=== PATIENT | male | born 2000 | race Caucasian/White ===

== ENCOUNTER 2023-03-12 15:50 | Inpatient (IN) | payer OTHER, SELFPAY ==
[~2023-03-12 15:50] MED LIST: Iopamidol 370 76% 100 ML VIAL ONE
[2023-03-12 17:22] LABS: #Eosinphils 0.1 10x3/uL (0.0-0.5); #Monocytes 0.9 10x3/uL (0.0-1.1); #Neutrophils 6.5 10x3/uL (1.5-8.4); %Basophils 0.1 % (0.0-2.0); %Eosinophils 1.6 % (0.0-6.0); %Lymphocytes 8.4 % (18.0-47.0); %Monocytes 11.3 % (0.0-10.0); %Neutrophils 78.4 % (40.0-75.0); Hematocrit 37.7 % (38.8-50.0); Hemoglobin 13.3 g/dL (13.5-17.5); Mean Corpuscular HGB CONC 35.3 g/dL (32.0-36.0); Mean Corpuscular Volume 84.9 fl (81.2-95.1); Mean Platelet Volume 10.2 fl (7.4-10.4); Platelet Count 187 10x3/uL (150-450); RBC Distribution Width 12.3 % (11.5-14.5); Red Blood Cell (RBC) Count 4.44 10x6/uL (4.32-5.72); White Blood Cell (WBC) Count 8.3 10x3/uL (3.5-10.5)
[2023-03-12 17:33] LABS: ALT (SGPT) 15 U/L (8-55); AST (SGOT) 26 U/L (5-34); Albumin 4.2 g/dL (3.5-5.0); Alkaline Phosphatase 53 U/L (40-110); Anion Gap 16 mmol/L (10-20); BUN (Urea Nitrogen) 11 mg/dL (8.9-20.6); Calc. Creatinine Clearance 0 mL/min (70-130); Calcium 8.8 mg/dL (7.8-10.44); Carbon Dioxide 22 mmol/L (22-29); Chloride 104 mmol/L (98-107); Estimated GFR 127; Globulin 2.5 g/dL (2.4-3.5); Glucose 109 mg/dL (70-105); Magnesium 1.8 mg/dL (1.6-2.6); Protein, Total 6.7 g/dL (6.0-8.3); Sodium 138 mmol/L (136-145)
[2023-03-12 17:38] LABS: Troponin I Less than 0.010 ng/mL (< 0.028)
[2023-03-12] MEDS ORDERED: Ondansetron PF 4 MG/2 ML Vial ONE (18:08)
[2023-03-12] MEDS ORDERED: cefTRIAXone (ROCEPHIN) 1 GM VIAL ONE (18:08)
[2023-03-12] MEDS ORDERED: Azithromycin 500 MG VIAL ONE (18:09)
[2023-03-12] MEDS ORDERED: HYDROcodone/Acetaminophen 5/325 mg Tablet PO PRN (18:10)
[2023-03-12] MEDS ORDERED: Senokot S 8.6-50 MG TAB PO PRN (18:10)
[2023-03-12] MEDS ORDERED: Ipratropium/Albuterol 3 ML NEB NEB PRN (18:12)
[2023-03-12] MEDS ORDERED: Ondansetron ODT 4 MG TAB PO PRN (18:14)
[2023-03-12] MEDS ORDERED: Ondansetron PF 4 MG/2 ML Vial IVP PRN (18:14)
[2023-03-12] MEDS ORDERED: Sodium Chloride 0.9% 1,000 ML IV SCH (18:15)
[2023-03-12 18:41] LABS: Actual Bicarbonate (HCO3v) 22.7 mEq/L (22-28); Calcium, Ionized (venous) 0.98 mmol/L (1.16-1.32); Chloride (VBG) 103 mmol/L (98-106); Critical Notified By: Udy, RRT; Potassium (VBG) 3.62 mmol/L (3.70-5.30); Puncture Site Other Site; RapidComm Collect By Lab; Sodium 136 mmol/L (133-146); pH (venous) 7.473 (7.32-7.43)
[2023-03-12 19:13] LABS: SARS-CoV-2 NAA Rapid Test Not Detected (NotDetected)
[2023-03-12 20:13] VITALS: BMI 21.8
[2023-03-12] MEDS: Ipratropium/Albuterol 3 ML NEB NEB SCH (20:25)
[2023-03-12] MEDS: Azithromycin 500 MG in Sodium Chloride 0.9% 250 ML 250 ML IVPB SCH (21:45)
[2023-03-12] MEDS: Famotidine/PF 20 mg/2ml Vial SLOW IVP SCH (21:46)
[2023-03-12] MEDS: guaiFENesin ER 600 MG TAB PO SCH (21:46)
[2023-03-13] MEDS: Ipratropium/Albuterol 3 ML NEB NEB SCH ×4 (01:05→19:59)
[2023-03-13 04:25] LABS: Anion Gap 13 mmol/L (10-20); BUN (Urea Nitrogen) 12 mg/dL (8.9-20.6); Calc. Creatinine Clearance 145 mL/min (70-130); Calcium 8.4 mg/dL (7.8-10.44); Carbon Dioxide 24 mmol/L (22-29); Chloride 107 mmol/L (98-107); Estimated GFR 128; Glucose 98 mg/dL (70-105); Potassium 3.9 mmol/L (3.5-5.1); Sodium 140 mmol/L (136-145)
[2023-03-13 04:30] LABS: #Eosinphils 0.3 10x3/uL (0.0-0.5); #Monocytes 0.9 10x3/uL (0.0-1.1); #Neutrophils 3.2 10x3/uL (1.5-8.4); %Basophils 0.3 % (0.0-2.0); %Eosinophils 5.2 % (0.0-6.0); %Lymphocytes 23.1 % (18.0-47.0); %Monocytes 16.3 % (0.0-10.0); %Neutrophils 54.8 % (40.0-75.0); Hematocrit 32.2 % (38.8-50.0); Hemoglobin 11.2 g/dL (13.5-17.5); Mean Corpuscular HGB CONC 34.8 g/dL (32.0-36.0); Mean Corpuscular Hemoglobin 30.3 pg (27.0-33.0); Mean Platelet Volume 10.5 fl (7.4-10.4); Platelet Count 152 10x3/uL (150-450); RBC Distribution Width 12.5 % (11.5-14.5); White Blood Cell (WBC) Count 5.8 10x3/uL (3.5-10.5)
[2023-03-13] MEDS ORDERED: Calcium Carbonate 500 MG ChewTAB PO PRN (06:56)
[2023-03-13] MEDS ORDERED: Bisacodyl 10 MG SUPP PR PRN (10:06)
[2023-03-13] MEDS: Acetaminophen 325 MG TAB PO PRN ×2 (10:07→15:29)
[2023-03-13] MEDS: guaiFENesin ER 600 MG TAB PO SCH ×2 (10:08→22:28)
[2023-03-13] MEDS: Famotidine/PF 20 mg/2ml Vial SLOW IVP SCH (10:26)
[2023-03-13] MEDS: Ibuprofen 200 MG TAB PO PRN ×2 (11:22→22:27)
[2023-03-13] MEDS ORDERED: cefTRIAXone\\ROCEPHIN 2 GM in Sodium Chloride 0.9% 100 ML IVPB SCH (18:00)
[2023-03-13] MEDS: Senokot S 8.6-50 MG TAB PO SCH (21:00)
[2023-03-13] MEDS: Azithromycin 500 MG in Sodium Chloride 0.9% 250 ML 250 ML IVPB SCH (22:28)
[2023-03-14] MEDS: Ipratropium/Albuterol 3 ML NEB NEB SCH ×2 (01:35→09:20)
[2023-03-14] MEDS: Senokot S 8.6-50 MG TAB PO SCH (08:35)
[2023-03-14] MEDS: guaiFENesin ER 600 MG TAB PO SCH (08:57)
[2023-03-14] MEDS: Ibuprofen 200 MG TAB PO PRN (08:57)
[2023-03-14] MEDS ORDERED: Polyethylene Glycol 3350 17 GM Packet PO SCH (09:00)
[2023-03-14 10:25] VITALS: BP 112/64; TEMP 98.7
== END 2023-03-14 10:00 | disposition home or self-care (01) | DRG 193 ==
LOC: CSHERS 15:50 → CSHTELE 20:05
PROVIDERS: ADMIT Family Medicine; ATTEND Internal Medicine
DX: J18.9 Pneumonia, unspecified organism (principal); J96.01 Acute respiratory failure with hypoxia; S82.209D Unspecified fracture of shaft of unspecified tibia, subsequent encounter for closed fracture with routine healing
CPT/HCPCS: 36415; 71045; 71275; 80048; 80053; 82805; 83735; 84484; 85025; 85379; 87633; 93005; 94640; 94760; 94799; 96374; 96375; J0456; J0696; J1650; J2405; J3490; J7050; J7620; Q9967; S0028